=== PATIENT | male | born 1950 | race African-American/Black ===

== ENCOUNTER 2020-11-01 06:21 | Observation (INO) | payer MEDICARE, SELFPAY ==
[2020-11-01] VITALS (16 sets, daily range): BP systolic 97–141; BP diastolic 71–84; PULSE 68–187; RESP 18–20; TEMP 36.2–37.1; O2SAT 93–98; BMI 32.8
--- NOTE | 2020-11-01 | ECHO_ITS ---
Patient Info Name: Houston Read Age: 70 years : 1950 Gender: Male Ht: 71 in Wt: 240 lbs BSA: 2.37 m2 HR: 112 bpm BP: 111 / 75 mmHg Technical Quality: Good Exam Date: 11/01/2020 2:09 PM Exam Location: [facility] Patient Status: Outpatient Admit Date: 11/01/2020 Staff Ordering Physician: Birdie Chaparro MD Accounting Officer: Garret Henry RDCS, RT Attending Provider: Louise Campbell MD Referring Physician: Krysta ELDER; Exam Type: CA echo doppler color flow Study Info Indications I50.9 - Heart failure, unspecified Complete two-dimensional, color flow and Doppler transthoracic echocardiogram is performed. Strain analysis performed. Summary 1. Complete two-dimensional, color flow and Doppler transthoracic echocardiogram is performed. 2. Left ventricular chamber dimension is normal. 3. Left ventricular systolic function is normal, estimated at 55-60%. 4. Right ventricular chamber dimension is moderately enlarged. 5. Right ventricular systolic function is reduced. 6. There is no mitral valve regurgitation. 7. There is mild aortic valve sclerosis. 8. There is no aortic valve stenosis. 9. There is no tricuspid valve regurgitation. 10. The aortic root size at the sinus of Valsalva is borderline dilated. 4.2 cm. 11. The prox ascending aorta size is borderline dilated. Left Ventricle Left ventricular chamber dimension is normal. Left ventricular systolic function is normal, estimated at 55-60%. There is no increased left ventricular wall thickness. Right Ventricle Right ventricular chamber dimension is moderately enlarged. Right ventricular systolic function is reduced. Left Atria Left atrial chamber dimension is normal. Right Atria Right atrial chamber dimension is normal. Aortic Valve The aortic valve is trileaflet. There is mild aortic valve sclerosis. There is no aortic valve stenosis. There is no aortic valve regurgitation. Pulmonic Valve The pulmonic valve is normal. There is no pulmonic valve stenosis. There is no pulmonic regurgitation. Mitral Valve The mitral valve has normal leaflets. There is no mitral valve stenosis. There is no mitral valve regurgitation. Tricuspid Valve The tricuspid valve leaflets are normal. There is no significant tricuspid valve stenosis. There is no tricuspid valve regurgitation. Unable to assess pulmonary artery systolic pressure due to poor TR jet. Pericardium/Pleural The pericardium appears normal. There is no pericardial effusion. Inferior Vena Cava Dilated inferior vena cava with <50% collapse upon inspiration consistent with elevated right atrial pressure. Aorta The aortic root size at the sinus of Valsalva is borderline dilated. 4.2 cm. The prox ascending aorta size is borderline dilated. Left Ventricular Outflow Tract Name Value Normal LVOT 2D LVOT Diameter 2.5 cm LVOT Doppler LVOT Peak Gradient 2 mmHg LVOT Mean Gradient 2 mmHg LVOT VTI 12 cm LVOT VTI/AV VTI Ratio 0.9
--- NOTE | ~2020-11-01 | CT_ITS ---
EXAMINATION: CTA chest PE protocol DATE: 11/02/2020 10:39 INDICATION: Atrial fibrillation. Dilated right ventricle on echocardiography TECHNIQUE: Computed tomography angiography (CTA) of the chest was performed with 100 mL Omnipaque-350 intravenous contrast timed to evaluate the pulmonary arteries. Coronal maximum intensity projection 3D-reconstructions were created by the technologist. Automated exposure control and iterative reconst ruction technique were employed. Exam dose: 828.87 mGy-cm total exam DLP. COMPARISON: 10/29/2020 portable AP chest FINDINGS: There is diagnostic contrast enhancement of the pulmonary arteries. There are extensive bilateral pulmonary emboli including bilateral main pulmonary emboli, saddle embo li and emboli extending into all lobes. No thoracic aortic aneurysm or dissection. Normal heart size. No pericardial or pleural effusion. No hilar or mediastinal mass lesion or lymphadenopathy. No pulmonary consolidation. There are mild groundglass infiltrates primarily at the lower lobes. Degenerative changes of the cervical and thoracic spine; no suspicious osteolytic or osteoblastic les ions are identified. IMPRESSION: Severe bilateral pulmonary embolism Dr. Guadarrama telephoned the report of extensive bilateral pulmonary embolism to ICU nurse Mary on 11/02 at 1051 hours. Reviewed, dictated and finalized at [facility]. Reviewed, dictated and finalized at location [facility]. IMPRESSION: Severe bilateral pulmonary embolism Dr. Guadarrama telephoned the report of extensive bilateral pulmonary embolism to ICU nurse Mary on 11/02/2020 at 1051 hours.
--- NOTE | ~2020-11-01 | XR_ITS ---
EXAMINATION: XR chest 1V portable 11/01/2020 07:44 INDICATION: Atrial fibrillation PROCEDURE: AP portable chest COMPARISON: 06/10/2018 FINDINGS: The lungs are clear. The cardiomediastinal silhouette is within normal limits. There are no pleural effusions. There is no pneumothorax suspected. IMPRESSION: 1: NO ACUTE CARDIOPULMONARY DISEASE. Reviewed, dictated and finalized at location [facility].
--- NOTE | 2020-11-01 06:33 | ECG_ITS ---
Measurements Intervals [place] Rate: 188 P: VA: 0 QRS: 58 QRSD: 121 T: -55 QT: 204 QTc: 361 Interpretive Statements ATRIAL FIBRILLATION WITH RAPID VENTRICULAR RESPONSE VENTRICULAR PREMATURE COMPLEX AND FREQUENT VENTRICULAR COUPLETS INTRAVENTRICULAR CONDUCTION DELAY ST-T WAVE ABNORMALITY IN INF/LAT LEADS- CONSIDER ISCHEMIA OR RATE RELATED ABNORMAL ECG Electronically Signed On 11-01-2020 6:57:34 CDT by Clint Hopkins D.O.
[2020-11-01] MEDS: dilTIAZem HCl INJ 25 MG/5 ML VIAL 20 MG IV PUSH (06:35)
--- NOTE | 2020-11-01 06:38 | ECG_ITS ---
Measurements Intervals [place] Rate: 101 P: 56 NV: 161 QRS: 54 QRSD: 113 T: 0 QT: 337 QTc: 437 Interpretive Statements SINUS TACHYCARDIA INTRAVENTRICULAR CONDUCTION DELAY BORDERLINE ST-T WAVE ABNORMALITY- ANT/INF LEADS BASELINE ARTIFACT- I, II, III, AVR, AVL, AVF BORDERLINE ECG Electronically Signed On 11-01-2020 6:58:46 CDT by Clint Hopkins D.O.
--- NOTE | 2020-11-01 06:39 | ED.GENADULT ---
HPI - General Adult General Chief complaint: Abdominal Pain <Cecilio Escalera MD - Last Filed: 11/01/20 07:04> Stated complaint: food poisoning? <Cecilio Escalera MD - Last Filed: 11/01/20 07:04> Time Seen by Provider: 11/01/20 06:37 <Cecilio Escalera MD - Last Filed: 11/01/20 07:04> History of Present Illness HPI narrative: Patient is a 70-year-old gentleman who presents to the emergency department with chief complaint of not feeling well patient reports that he has a strange sensation in his stomach denies fever denies vomiting reports has had some nausea. The patient denies diarrhea patient reports his past medical history significant for diabetes <Cecilio Escalera MD - Last Filed: 11/01/20 07:04> Related Data Allergies/adverse reactions: Allergies Allergy/AdvReac Type Severity Reaction Status Date / Time No Known Allergies Allergy Mild Verified 11/01/20 06:45 <Cecilio Escalera MD - Last Filed: 11/01/20 07:04> Review of Systems Review of Systems: Narrative: A 10 system review of systems was completed on the patient and is negative except for what is stated in the HPI. Nursing and ancillary documentation was reviewed. <Cecilio Escalera MD - Last Filed: 11/01/20 07:04> [facility] Past Medical History Medical History: Medical History (Updated 11/01/20 @ 08:22 by Birdie Chaparro MD) Diabetes mellitus Erectile dysfunction HLD (hyperlipidemia) Hypertension Normal colonoscopy (~2009) Renal failure <Cecilio Escalera MD - Last Filed: 11/01/20 07:04> Surgical History Surgical History: Surgical History Hx of appendectomy <Cecilio Escalera MD - Last Filed: 11/01/20 07:04> Family History Family History: Family History Unknown Heart disease <Cecilio Escalera MD - Last Filed: 11/01/20 07:04> Social History Social History: Social History Smoking status: Never smoker Second hand tobacco smoke exposure: No Alcohol intake: never Gender identity (if verbalized by the patient): Male <Cecilio Escalera MD - Last Filed: 11/01/20 07:04> Exam Narrative: Exam Narrative: GENERAL: Well-appearing, well-nourished, and in no acute distress. HEAD: Normocephalic, atraumatic. EYES: PERRLA and EOMI. ENT: Nares clear, no rhinorrhea or epistaxis. Mucous membranes moist. NECK: Supple. CHEST: Clear to auscultation. No respiratory distress. HEART: Regular rate and rhythm. No murmur heard. Normal peripheral pulses. ABDOMEN: Soft, nontender, nondistended, normal active bowel sounds. EXTREMITIES: Normal range of motion. No edema. SKIN: Warm, dry, no rash. NEURO: No focal deficits. Alert and oriented x3. PSYCH: Normal mood and affect. <Cecilio Escalera MD - Last Filed: 11/01/20 07:04> Course Course Emergency Course: The patient's heart rate after receiving Cardizem bolus and Cardizem drip converted back to sinus rhythm. <Cecilio Escalera MD - Last Filed: 11/01/20 07:04> Vital Signs Vital signs: Vital Signs Temperature 37.1 C 11/01/20 06:24 Pulse Rate 187 H 11/01/20 06:24 Respiratory Rate 18 11/01/20 06:24 Blood Pressure 122/71 11/01/20 06:24 Pulse Oximetry 98 11/01/20 06:24 Temperature 37.1 C 11/01/20 06:24 Pulse Rate 112 H 11/01/20 07:28 Respiratory Rate 18 11/01/20 07:28 Blood Pressure 111/75 11/01/20 07:28 Pulse Oximetry 94 11/01/20 07:28 <Cecilio Escalera MD - Last Filed: 11/01/20 07:04> Vital Signs Temperature 37.1 C 11/01/20 06:24 Pulse Rate 187 H 11/01/20 06:24 Respiratory Rate 18 11/01/20 06:24 Blood Pressure 122/71 11/01/20 06:24 Pulse Oximetry 98 11/01/20 06:24 Temperature 37.1 C 11/01/20 06
[2020-11-01 06:43] LABS: Glucose Point of Care 454 (65-105)
[2020-11-01 06:46] LABS: Basophils Percent Auto 0.2 % (0.2-1.2); Eosinophils Percent Auto 0.1 % (0-4.4); Hematocrit 43.9 % (42.0-52.0); Hemoglobin 14.9 g/dL (14.0-18.0); Immature Granulocyte Absolute 0.02 K/mm3 (0.00-0.031); Immature Granulocyte Percent A 0.2 % (0-0.5); Lymphocytes Absolute Auto 2.99 K/mm3 (0.9-3.2); Lymphocytes Percent Auto 34.9 % (18.3-44.2); Mean Corpuscular HGB Conc 33.9 g/dl (32-36); Mean Corpuscular Hemoglobin 29.4 pg (26-34); Mean Corpuscular Volume 86.6 fl (80-100); Mean Platelet Volume 10.6 fl (7.4-10.4); Monocytes Absolute Auto 0.7 K/mm3 (0.1-0.6); Monocytes Percent Auto 8.5 % (2.6-8.5); Neutrophils Absolute Auto 4.8 K/mm3 (1.3-6.7); Neutrophils Percent Auto 56.1 % (45.5-73.1); Platelet Count Result 177 k/mm3 (150-375); Red Blood Count 5.07 M/mm3 (4.6-6.20); Red Cell Distribution Width 13.1 % (11.5-14.5); White Blood Count 8.6 K/mm3 (4.5-10.0)
[2020-11-01] MEDS: ASPIRIN 81 MG CHEWABLE TABLET 324 MG PO (06:50)
[2020-11-01] MEDS: SODIUM CHLORIDE 0.9% IV 1,000 ML 999 ML IV CONT (06:50)
[2020-11-01] MEDS: ONDANSETRON INJ 4 MG/2 ML VIAL IV PUSH (06:51)
[2020-11-01 06:56] LABS: Lipase 129 U/L (23-300); Partial Thromboplastin Time 27.6 SECONDS (22.3-36.8); Prothrombin Time 13.6 Seconds (11.1-14.7)
[2020-11-01 06:58] LABS: Alveolar/Arterial O2 Gradient 43.4 mmHg; Base Excess ABG -4.6 mEq/l (+/-2.0); Fractional Inspired Oxygen 21 %; HCO3 ABG 18.6 mEq/l (22.0-26.0); Oxygen Content ABG 18.9 %vol (16.0-22.0); Oxygen Saturation ABG 94.6 % (95.0-100.0); Oxyhemoglobin 92.2 % THb (90.0-100.0); PCO2 ABG 29.9 mmHg (35.0-45.0); PO2 ABG 70.5 mmHg (80.0-100.0); PO2 FiO2 Ratio Arterial Blood 3.36 %; Total Hemoglobin 14.6 g/dL (12.0-18.0); pH ABG 7.412 (7.350-7.450)
[2020-11-01 06:59] LABS: Device ROOM AIR; Modified Allen's Test Pass; Site Drawn RIGHT RADIAL
[2020-11-01 07:07] LABS: NT Pro B Type Natriuretic Pept 1040 PG/ML (5-100)
[2020-11-01 07:12] LABS: Troponin I 0.126 ng/mL (0.000-0.034)
[2020-11-01 07:37] LABS: Add Urine Microscopic? YES; Appearance Urine Clear (Clear); Bacteria Urine Trace /hpf; Bilirubin Urine Negative (Negative); Blood Urine Negative (Negative); Color Urine Yellow (Yellow); Glucose Urine UA 3+ mg/dL (Negative); Ketones Urine Trace mg/dL (Negative); Leukocyte Esterase Ur Negative LEU/UL (Negative); Mucus Urine Rare /lpf; Nitrate Urine Negative (Negative); Protein Urine 2+ mg/dL (Negative); RBC Urine 0-2 /hpf (0-2); Specific Grav Ur 1.017 (1.001-1.035); Squamous Epithelial Cell Urine Rare /hpf (Few); Urobilinogen Urine Negative mg/dL (<2.0); WBC Urine 0-3 /hpf
[2020-11-01 08:02] LABS: Alanine Aminotransferase 43 U/L (4-50); Albumin Level 4.5 g/dL (3.5-5.1); Alkaline Phosphatase 77 U/L (38-126); Anion Gap 15 mmol/L (8-16); Aspartate Amino Transferase 51 U/L (17-59); Bilirubin,Total 1.1 mg/dL (0.2-1.3); Blood Urea Nitrogen 17 mg/dL (9-20); Calcium 10.3 mg/dL (8.4-10.2); Carbon Dioxide 23 mmol/L (22-30); Chloride 100 mmol/L (98-107); Estimated CRCL calculation 46 ml/min; Estimated Glomerular Filt Rate 49; Glucose 476 mg/dL (75-110); Potassium 4.6 mmol/L (3.4-5.0); Sodium 138 mmol/L (137-145)
[2020-11-01 08:09] LABS: Lactic Acid Reflex 1.8 mmol/L (0.7-2.1)
[2020-11-01 08:11] LABS: Beta-Hydroxybutyrate/Acetoacetate 0.85 mmol/L (0.02-0.27)
[2020-11-01] MEDS: INSULIN HUMAN REGULAR (*BKC) 100 UNITS/ML IV PUSH (08:21)
[2020-11-01 09:29] LABS: Glucose Point of Care 311 (65-105)
--- NOTE | 2020-11-01 09:40 | PC.NURSE ---
This patient, Houston Read, was admitted to IMU Room 201-01. Patient/family oriented to hospital policies and general routines including ID bracelet, bed and alarms, visiting hours, pain management, procedures, bathroom and other care routines, personal items, smoking policy, room service/diet, and visiting hours. Information on how to activate the Rapid Response Team has been discussed. Patient/Family are encouraged to report perceived risks to care and to ask questions if they do not understand what they are told or what they should do.
--- NOTE | 2020-11-01 09:59 | PM.CNCAR ---
Assessment and Plan Assessment and plan (1) Atrial fibrillation with rapid ventricular response: Code(s): I48.91 - Unspecified atrial fibrillation Status: Acute Assessment and Plan: Initially in AFIB with RVR. Now in NSR. This is the first episode pt ever had. cont cardizem monitor electrolytes and kideney function cont ASA for now. In case of recurrent arrhythmia may benefit from anticoagulation. Will arrange for Event monitor on outpatient basis. (2) Type 2 diabetes mellitus: Code(s): E11.9 - Type 2 diabetes mellitus without complications Status: Acute Assessment and Plan: Management per PC (3) Elevated troponin: Code(s): R77.8 - Other specified abnormalities of plasma proteins Status: Acute Assessment and Plan: Mild troponin elevation with flat pattern probably due to supply/demand mismatch in setting of tachyarrhythmia and chronic renal dysfunction or NSTEMI Agree with ECHO to evaluate LV function He may benefit from further cardiac evaluation on outpatient basis. (4) Chronic kidney disease, stage 3: Code(s): N18.30 - Chronic kidney disease, stage 3 unspecified Status: Acute Assessment and Plan: Cr elevated (1.7) May benefit from nephrology eval on outpt basis. Thank your for consult. Marquis robles. History of Present Illness History of Present Illness Consult date/time: 11/01/20 Mr. Read is a pleasant 70 y/o AAM with PMH of DM who presented to [facility] [place] [facility] due to episodes of dizziness. Pt states that felt dizzy on/off for the last few days. Worst symptoms he had yesterday and at that time felt some abdominal discomfort as well. Pt had EKG in ER which showed AFIB with RVR. He received one dose of cardizem and converted back to NSR. Hi dizziness then resolved. Denies palpitation or syncopal episodes. Pt denies any cardiac history. No arrhythmias. No PR, PCI of CABG. Never had stress test of ECHO. While in ER he was found to have elevated glucose and was complaining for some [place] as well. Pt was seen and examined while on telemetry floor, chart was reviewed, d/w pt's nurse. He feels fine now and is eager to go home. Reason For Visit: Tachydysrhythmia, elevated troponin, MELANIE Review of Systems Review of Systems: All systems reviewed & are unremarkable except as noted in HPI and below Constitutional: Constitutional: Reports as per HPI Eyes: Eyes: Reports as per HPI ENT: Reports system reviewed and no additional complaints, except as documented and Reports as per HPI Cardiovascular: Cardiovascular: Reports as per HPI Respiratory: Respiratory: Reports as per HPI Gastrointestinal: Gastrointestinal: Reports as per HPI Genitourinary: Genitourinary: Reports as per HPI Musculoskeletal: Musculoskeletal: Reports as per HPI [facility] Past Medical History Medical History (Updated 11/01/20 @ 13:35 by Yari Sarmiento PA-C) Anemia Chronic kidney disease, stage 3 Baseline creatinine ranges between 1.2 and 1.30. Dyslipidemia Erectile dysfunction Hypertension Normal colonoscopy (~2009) Type 2 diabetes mellitus Hemoglobin A1c was 6.9% in May 2019. Surgical History Surgical History (Updated 11/01/20 @ 13:33 by Yari Sarmiento PA-C) History of appendectomy History of hand surgery Close reduction with percutaneous pinning of left 5th finger fracture. History of repair of right rotator cuff Family History Family History (Updated 11/01/20 @ 13:33 by Yari Sarmiento PA-C) Unknown Heart disease Sibling Congestive heart failure Social History Social History (Updated 11/01/20 @ 13:34 by Yari Sarmiento PA-C) Social History: Surrogate decision maker: Dakota Read, brother. Code status: Full code. Smoking status: Never smoker Second hand tobacco smoke exposure: No Additional smoking assessment comments: Patient smokes socially for 3 years remotely. Alcohol intake: never Substance use: never
[2020-11-01 11:15] LABS: Magnesium 1.6 mg/dL (1.6-2.3)
[2020-11-01 11:26] LABS: Troponin I 0.104 ng/mL (0.000-0.034)
[2020-11-01 13:16] LABS: Troponin I 0.094 ng/mL (0.000-0.034)
--- NOTE | 2020-11-01 13:30 | PM.IMHP ---
H&P: HPI History of Present Illness Date/Time: 11/01/20 13:00 Chief Complaint: Dizziness, shortness of breath, abdominal discomfort. Narrative: This is a 70-year-old male with type 2 diabetes mellitus, hypertension, hyperlipidemia, chronic kidney disease stage 3, and anemia who presented to the emergency department earlier today from home with complaints of dizziness, shortness of breath, and abdominal discomfort. Sometime last evening while watching television he began to feel a bit lightheaded with mild shortness of breath and generalized abdominal discomfort and bloating. He also felt as though his heart was racing so he lay down and took slow deep breaths with improvement. Each time he got up to go to the bathroom etcetera his heart with once again start to race with dizziness and shortness of breath. On arrival to the emergency department he was in atrial fibrillation with rapid ventricular response and he converted to a sinus rhythm/sinus tachycardia after receiving 1 dose of Cardizem IV push. He has never had similar symptoms in the past. No known history of cardiac or thyroid disease. He denies sleep apnea and concerns for such. He does not drink alcohol and very rarely will drink a soda here and there. Weight has remained stable. He has not had exertional chest pain or shortness of breath. No pleuritic pain. He also denies nausea, vomiting, and sweats. At the time my evaluation he feels great and is ready to go home. Review of Systems Review of Systems: Narrative: Twelve systems were reviewed with pertinent positives and negatives as per HPI. His glucose today after dinner was over 500 which the patient tells me has never occurred. He states compliance with his oral hypoglycemics and to his knowledge his diabetes has been well controlled for quite some time. No blurry vision, polydipsia, or polyuria. Appetite has been as per usual and without vomiting or diarrhea. Except as documented, all other systems were reviewed and are negative. [facility] Past Medical History Medical History Anemia Chronic kidney disease, stage 3 Baseline creatinine ranges between 1.2 and 1.30. Dyslipidemia Erectile dysfunction Hypertension Normal colonoscopy (~2009) Type 2 diabetes mellitus Hemoglobin A1c was 6.9% in May 2019. Surgical History Surgical History (Updated 11/01/20 @ 13:33 by Yari Sarmiento PA-C) History of appendectomy History of hand surgery Close reduction with percutaneous pinning of left 5th finger fracture. History of repair of right rotator cuff Family History Family History (Updated 11/01/20 @ 13:33 by Yari Sarmiento PA-C) Unknown Heart disease Sibling Congestive heart failure Social History Social History (Updated 11/01/20 @ 22:30 by Yari Sarmiento PA-C) Social History: Surrogate decision maker: Dakota Read, brother. Code status: Full code. Smoking status: Never smoker Second hand tobacco smoke exposure: No Additional smoking assessment comments: Patient smoked socially for 3 years remotely. Alcohol intake: never Substance use: never Additional living arrangements comments: Lives alone in [place]. He has grown children. Additional occupation/education comments: He drives a school bus. Gender identity (if verbalized by the patient): Male Spiritual care concerns: No Meds Home Medications and Allergies Home Medications Medication Instructions Recorded Confirmed Type glimepiride 4 mg tablet 4 mg PO QAM #90 tablet 03/31/20 11/01/20 Rx lisinopril 20 mg tablet 20 mg PO DAILY #90 tablet 03/31/20 11/01/20 Rx lovastatin 20 mg tablet 20 mg PO DAILY #90 tablet 03/31/20 11/01/20 Rx metformin 500 mg tablet 1,000 mg PO BID #360 tablet 06/22/20 11/01/20 Rx cyclobenzaprine 10 mg PO HS 11/01/20 11/01/20 History Allergies Allergy/AdvReac Type Severity Reaction Status Date / Time No Known Allergies Al
[2020-11-01 14:23] LABS: Hemoglobin A1C 10.1 % (<5.7)
[2020-11-01] MEDS: SODIUM CHLORIDE 0.9% IV 1,000 ML 100 ML IV CONT (14:54)
[2020-11-01] MEDS: ENOXAPARIN 120 MG/0.8 ML SYRINGE 105 MG SUB-Q (14:55)
[2020-11-01 17:12] LABS: Glucose Point of Care > 500 (65-105)
[2020-11-01] MEDS: INSULIN ASPART (*BKC) 100 UNITS/ML SUB-Q (18:04)
[2020-11-01] MEDS: INSULIN ASPART (*BKC) 100 UNITS/ML 6 UNITS SUB-Q (18:40)
[2020-11-01 20:06] LABS: Glucose Point of Care 379 (65-105)
[2020-11-01 20:41] LABS: Anion Gap 7 mmol/L (8-16); Blood Urea Nitrogen 22 mg/dL (9-20); Calcium 9.4 mg/dL (8.4-10.2); Carbon Dioxide 25 mmol/L (22-30); Chloride 102 mmol/L (98-107); Estimated CRCL calculation 52 ml/min; Estimated Glomerular Filt Rate 56; Glucose 328 mg/dL (75-110); Potassium 3.8 mmol/L (3.4-5.0); Sodium 134 mmol/L (137-145)
[2020-11-01] MEDS: MAGNESIUM OXIDE 400 MG TABLET 800 MG PO (21:02)
[2020-11-02 02:00] VITALS: PULSE 102
[2020-11-02] MEDS: ENOXAPARIN 120 MG/0.8 ML SYRINGE 105 MG SUB-Q (03:00)
[2020-11-02 04:00] VITALS: BP 118/66; PULSE 110; PULSE 111; RESP 18; RESP 20; TEMP 36.6; O2SAT 96
[2020-11-02 05:17] LABS: Hematocrit 36.4 % (42.0-52.0); Hemoglobin 12.5 g/dL (14.0-18.0); Immature Platelet Fraction Pct 7.3 % (0.9-11.2); Mean Corpuscular HGB Conc 34.3 g/dl (32-36); Mean Corpuscular Volume 87.5 fl (80-100); Mean Platelet Volume 10.8 fl (7.4-10.4); Platelet Count Result 147 k/mm3 (150-375); Red Blood Count 4.16 M/mm3 (4.6-6.20); Red Cell Distribution Width 13.3 % (11.5-14.5); White Blood Count 5.7 K/mm3 (4.5-10.0)
[2020-11-02 05:38] LABS: Anion Gap 4 mmol/L (8-16); Blood Urea Nitrogen 20 mg/dL (9-20); Calcium 8.6 mg/dL (8.4-10.2); Carbon Dioxide 27 mmol/L (22-30); Chloride 103 mmol/L (98-107); Estimated CRCL calculation 56 ml/min; Estimated Glomerular Filt Rate > 60; Glucose 350 mg/dL (75-110); Magnesium 1.6 mg/dL (1.6-2.3); Potassium 4.6 mmol/L (3.4-5.0); Sodium 134 mmol/L (137-145)
[2020-11-02 06:00] VITALS: PULSE 111
[2020-11-02 08:00] VITALS: BP 137/85; PULSE 102; PULSE 103; RESP 18; TEMP 35.5; O2SAT 99
[2020-11-02] MEDS: MAGNESIUM OXIDE 400 MG TABLET 800 MG PO (08:12)
[2020-11-02] MEDS: LOVASTATIN 20 MG TABLET PO (08:13)
[2020-11-02] MEDS: ASPIRIN 325 MG ENTERIC TABLET PO (08:13)
[2020-11-02] MEDS: GLIMEPIRIDE 2 MG TABLET 4 MG PO (08:13)
[2020-11-02] MEDS: INSULIN ASPART (*BKC) 100 UNITS/ML SUB-Q ×2 (08:15→12:15)
--- NOTE | 2020-11-02 08:26 | PM.PNCARD ---
Progress Note: A&P Assessment and Plan (1) Atrial fibrillation with rapid ventricular response: Code(s): I48.91 - Unspecified atrial fibrillation Status: Acute Assessment and Plan: Initially in AFIB with RVR, Now in sinus tachycardia 2D echo showed dilated RV and RV dysfunction. With new onset A fib, mild trop elevation and finding on 2D echo there is high suspecion for PE Will proceed with stat CT scan PE protocol. His Cr is 1.4, will order IV fluids in anticipation to contrast He is on therapeutic dose of Lovenox. Will continue for now. He is hemodynamically stable except for mild sinus tachycardia (2) Elevated troponin: Code(s): R77.8 - Other specified abnormalities of plasma proteins Status: Acute Assessment and Plan: With dilated RV on echo. Will rule out PE. (3) Chronic kidney disease, stage 3: Code(s): N18.30 - Chronic kidney disease, stage 3 unspecified Status: Acute Assessment and Plan: Cr elevated (1.7), now down to 1.4. Need stat CT scan with contrast to rule out PE. Rodney tart IV fluids . (4) Type 2 diabetes mellitus: Code(s): E11.9 - Type 2 diabetes mellitus without complications Status: Acute Assessment and Plan: Management per PC Subjective Date/time seen: 11/02/20 08:26 He feels better and would like to go home. He remains in sinus rhythm since converted in ER. In Sinus tachycardia now ~ 100 Review of Systems Review of Systems: All systems reviewed & are unremarkable except as noted in HPI and below Constitutional: Constitutional: Reports as per HPI Eyes: Eyes: Reports as per HPI ENT: Reports system reviewed and no additional complaints, except as documented and Reports as per HPI Cardiovascular: Cardiovascular: Reports as per HPI Respiratory: Respiratory: Reports as per HPI Gastrointestinal: Gastrointestinal: Reports as per HPI Genitourinary: Genitourinary: Reports as per HPI Musculoskeletal: Musculoskeletal: Reports as per HPI Exam Const: General: alert and awake; No acute distress HENMT: Head: normal to inspection and atraumatic Ears: hearing grossly normal bilaterally Face and sinus: normal facial exam Eyes: General: appearance normal, both eyes and all related structures Pupils: Equal, round and reactive pupils present EOM: EOMs intact bilaterally Neck: Neck: normal visual inspection and no JVD Chest: Chest palpation & inspection: normal inspection of the chest Resp: Effort & Inspection: normal respiratory effort and no respiratory distress Auscultation: clear to auscultation bilaterally Cardio: Jugular venous distension: no JVD Rate: regular rate Heart sounds: S1 normal heart sound present, S2 normal heart sound present and no murmurs GI: Inspection: normal to inspection Auscultation: normal bowel sounds Skin: General skin exam: normal color Neuro: Cranial nerves: Yes Equal, round and reactive pupils present Extrem: General: normal to inspection and no clubbing, cyanosis or edema Objective Data Vital Signs Vital Signs: Vital Signs - 24 hr 11/01/20 09:46 11/01/20 09:50 11/01/20 10:00 Temperature 36.2 C L Pulse Rate 107 H 107 H 103 H Respiratory Rate 18 18 Blood Pressure 124/72 97/76 L Pulse Oximetry 96 97 11/01/20 12:00 11/01/20 14:00 11/01/20 16:00 Temperature 36.3 C L 36.4 C Pulse Rate 114 H 117 H 119 H Respiratory Rate 18 18 Blood Pressure 123/72 123/80 Pulse Oximetry 98 96 11/01/20 18:00 11/01/20 19:46 11/01/20 20:00 Temperature 36.6 C Pulse Rate 112 H 113 H 115 H Respiratory Rate 18 18 Blood Pressure 114/71 Pulse Oximetry 93 93 11/01/20 22:00 11/01/20 23:17 11/01/20 23:59 Temperature 36.6 C Pulse Rate 112 H 115 H 108 H Respiratory Rate 20 20 Blood Pressure 130/75 Pulse Oximetry 96 96 11/02/20 02:00 11/02/20 04:00 11/02/20 06:00 Temperature 36.6 C Pulse Rate 102 H 111 H 111 H Respiratory Rate 18 Blood Pressu
[2020-11-02 08:51] LABS: Glucose Point of Care 320 (65-105)
[2020-11-02 10:00] VITALS: PULSE 114
[2020-11-02] MEDS: SODIUM CHLORIDE 0.9% IV 1,000 ML 100 ML IV CONT (10:19)
[2020-11-02 12:00] VITALS: BP 143/93; PULSE 114; PULSE 135; RESP 18; TEMP 35.8; O2SAT 98
[2020-11-02 12:23] LABS: Glucose Point of Care 383 (65-105)
--- NOTE | 2020-11-02 17:50 | PM.TDS ---
Transfer Discharge Sum: Prov Provider Date of admission: 11/01/20 08:15 Primary care physician: Reena Sims MD Admitting clinician: Louise Campbell MD Consults: 11/01/20 08:17 Consult to Physician Routine Comment: Consulting Provider: Connor Olson Reason for consultation: elevated troponin Has provider been notified: Yes DS: Admitting Diagnosis Admitting Diagnosis Admitting Diagnosis: Chief Complaint: Dizziness, shortness of breath, abdominal discomfort. DS: Discharge Diagnosis Discharge Diagnosis (1) Atrial fibrillation with rapid ventricular response: Code(s): I48.91 - Unspecified atrial fibrillation Status: Acute Assessment and Plan: Patient presented to the hospital in AFib/RVR with a rate of 187. Converted to sinus rhythm with diltiazem. This is a new diagnosis for the patient he has had symptoms for about 24 hours. Chads Vasc 2 score is 3; will start therapeutic Lovenox for now, pending cardiology consult. Echocardiogram and TSH pending. Consider apnea link. (2) Elevated troponin: Code(s): R77.8 - Other specified abnormalities of plasma proteins Status: Acute Assessment and Plan: Likely related to AFib/RVR; he is not have any chest pain whatsoever. Trend troponins to peak. Echocardiogram in a.m. Cardiology input appreciated. (3) Hypertension: Code(s): I10 - Essential (primary) hypertension Status: Acute Assessment and Plan: Blood pressures were reviewed and they are well controlled aside from 1 soft reading after receiving bolus of diltiazem. Patient reports normal oral intake. Lisinopril on hold given worsening renal function. Continue to monitor blood pressures daily. (4) Dyslipidemia: Code(s): E78.5 - Hyperlipidemia, unspecified Status: Acute Assessment and Plan: Continue statin; LFTs within normal limits. (5) Chronic kidney disease, stage 3: Code(s): N18.30 - Chronic kidney disease, stage 3 unspecified Status: Acute Assessment and Plan: Baseline creatinine appears to be between 1.2 and 1.30, today a bit elevated at 1.70. Lisinopril and metformin on hold. Judicious IV fluid rehydration overnight. Repeat renal function in a.m. (6) Type 2 diabetes mellitus: Code(s): E11.9 - Type 2 diabetes mellitus without complications Status: Acute Assessment and Plan: Hemoglobin A1c was 6.9% in May 2019. Random glucose this morning was 476! Metformin on hold given increasing creatinine from baseline. Continue glipizide. Initiate sliding scale insulin, Accu-Cheks, and hypoglycemic protocol. Check hemoglobin A1c. Transfer Discharge Sum: Med Medications Active and Home Medications: Home Medications glimepiride 4 mg tablet 4 mg PO QAM #90 tablet 03/31/20 [Rx Confirmed 11/01/20] lisinopril 20 mg tablet 20 mg PO DAILY #90 tablet 03/31/20 [Rx Confirmed 11/01/20] lovastatin 20 mg tablet 20 mg PO DAILY #90 tablet 03/31/20 [Rx Confirmed 11/01/20] metformin 500 mg tablet 1,000 mg PO BID #360 tablet 06/22/20 [Rx Confirmed 11/01/20] cyclobenzaprine 10 mg PO HS 11/01/20 [History Confirmed 11/01/20] Transfer Discharge Sum: Hosp Hospital Course Hospital course: [place] Read is a 70 year old male Chief Complaint: Dizziness, shortness of breath, abdominal discomfort. Narrative: This is a 70-year-old male with type 2 diabetes mellitus, hypertension, hyperlipidemia, chronic kidney disease stage 3, and anemia who presented to the emergency department earlier today from home with complaints of dizziness, shortness of breath, and abdominal discomfort. Sometime last evening while watching television he began to feel a bit lightheaded with mild shortness of breath and generalized abdominal discomfort and bloating. He also felt as though his heart was racing so he lay down and took slow deep breaths with improvement. Each time he got up to go to the bathroom et
== END 2020-11-02 14:30 | disposition short-term general hospital (02) ==
LOC: ANHED 08:22 → ANHIMU 08:34
PROVIDERS: Internal Medicine Cardiovascular Disease; Physician Assistant; Admitting Provider Family Medicine; Emergency Provider Emergency Medicine; PCP Family Medicine; Visit Provider Family Medicine
DX: I48.91 Unspecified atrial fibrillation (principal); I26.99 Other pulmonary embolism without acute cor pulmonale; R77.8 Other specified abnormalities of plasma proteins; I12.9 Hypertensive chronic kidney disease with stage 1 through stage 4 chronic kidney disease, or unspecified chronic kidney disease; N18.30 Chronic kidney disease, stage 3 unspecified; E11.22 Type 2 diabetes mellitus with diabetic chronic kidney disease; E78.5 Hyperlipidemia, unspecified; R10.9 Unspecified abdominal pain; R06.02 Shortness of breath; Z79.84 Long term (current) use of oral hypoglycemic drugs
CPT/HCPCS: 36415; 36600; 71045; 71275; 80048; 80053; 81001; 82010; 82805; 82948; 83036; 83605; 83690; 83735; 83880; 84443; 84484; 85025; 85027; 85055; 85610; 85730; 93005; 93306; 96361; 96372; 96374; 96375; 99285; A9270; G0378; J1650; J1815; J2405; J7030; Q9967

== ENCOUNTER 2023-11-18 10:10 | Outpatient (CLI) | payer MEDICARE, SELFPAY ==
--- NOTE | ~2023-11-18 | US_ITS ---
EXAMINATION: US soft tissue UE RT DATE: 11/18/2023 10:27 INDICATION: Localized swelling, mass and lump, right upper limb. TECHNIQUE: Multiple grayscale and Doppler ultrasound images of the right upper limb were obtained. COMPARISON: None FINDINGS: Superior to right acromioclavicular joint, there is a 4.1 x 2.0 x 5.2 cm predominantly cyst ic mass with peripheral hypoechoic component without internal vascular flow. IMPRESSION: 1. 5.2 cm cystic mass superior to the right acromioclavicular joint, which may be a synovial cyst. Ne oplasm is not excluded. Consider right shoulder MRI without and with contrast. Reviewed, dictated and finalized at location A. IMPRESSION: 1. 5.2 cm cystic mass superior to the right acromioclavicular joint, which may be a synovial cyst. Neoplasm is not excluded. Consider right shoulder MRI witho ut and with contrast.
== END 2023-11-18 10:11 ==
LOC: MICIMG 10:11
PROVIDERS: PCP Surgery; Visit Provider Surgery
DX: R22.31 Localized swelling, mass and lump, right upper limb (principal)
CPT/HCPCS: 76882

== ENCOUNTER 2023-11-29 09:25 | Outpatient (CLI) | payer MEDICARE, SELFPAY ==
--- NOTE | 2023-11-29 09:41 | ECG_ITS ---
SEE SCANNED COPY FOR CONFIRMED REPORT MTDD
[2023-11-29 10:14] LABS: Partial Thromboplastin Time 27.1 Seconds (22.3-36.8); Prothrombin Time 13.3 Seconds (11.1-14.7)
[2023-11-29 10:24] LABS: Anion Gap 8 mmol/L (4-12); Blood Urea Nitrogen 21 mg/dL (9-20); Calcium 10.1 mg/dL (8.4-10.2); Carbon Dioxide 25 mmol/L (22-30); Chloride 107 mmol/L (98-107); Estimated Glomerular Filt Rate 56; Glucose 309 mg/dL (65-110); Potassium 4.9 mmol/L (3.4-5.0); Sodium 140 mmol/L (137-145)
== END 2023-11-29 09:26 | disposition home or self-care (01) ==
LOC: ANHSURGERY 09:29
PROVIDERS: Anesthesiology; PCP Family Medicine; Visit Provider Surgery
DX: Z01.818 Encounter for other preprocedural examination (principal); E11.9 Type 2 diabetes mellitus without complications; I12.9 Hypertensive chronic kidney disease with stage 1 through stage 4 chronic kidney disease, or unspecified chronic kidney disease; N18.30 Chronic kidney disease, stage 3 unspecified
CPT/HCPCS: 36415; 80048; 85610; 85730; 93005

== ENCOUNTER 2023-12-02 00:46 | Day surgery (SDC) | payer MEDICARE, SELFPAY ==
[2023-11-28 11:15] VITALS: BMI 30.7
--- NOTE | 2023-11-28 11:46 | PC.NURSE ---
Report to the Outpatient Waiting Room, entrance under the green pavilion located off [facility], at time __10:00AM on date ___12/02/23____. Planned Procedure Time: __12:00PM . Time changes happen often and if your time is changed the preop area will call you the afternoon before. - You and your visitor will be asked to self-screen and do not enter if you have any COVID symptoms. - A mask is optional within the hospital at this time. Patients may have clear liquids (water, carbonated beverages, clear teas, apple juice) until 3 hours prior to surgery with a maximum of 20 ounces. - No food from midnight until time of surgery. Take the following medications with a SIP of water the morning of surgery: METOPROLOL DO NOT STOP ANY OF YOUR OTHER PRESCRIPTION MEDICATIONS PRIOR TO SURGERY ?EXCEPT THE FOLLOWING Medications to discontinue per physician ___NONE Date to take last dose Please no make-up, nail slovenian, hairspray, perfume, deodorant, or body powder the day of surgery. No jewelry (including any body piercings) or valuables the day of surgery, leave them at home. Please take a shower or bath the night before, or the morning of, surgery with an antibacterial soap. Wear comfortable, loose fitting clothing. - Jewelry must be removed prior to entering the operating room. Rings and piercings that are not removed may be cut off. - The hospital will not accept responsibility for valuables. - Please leave all valuables, including medications, at home the day of surgery. If you are going home after surgery, a licensed coach tour driver must drive you home. - NO public transportation without another adult if you receive anesthesia. - We recommend that an adult stay with you for 24 hours following discharge. - We also recommend that you do not drive, make important decision, drink alcoholic beverages, or take any drugs that were not prescribed by your health care provider for at least 24 hours after your discharge time. Follow any additional instructions given to you from your surgeon. If you or anyone in your household have experienced Covid symptoms in the past week, please notify your surgeon or the nurse liaison at the phone number below for possible testing. Telephone instructions given to ___PATIENT and asked if any additional questions and then verbalized understanding. Patient advised to call surgeon office or pre surgery nurse liaison [phone] if any additional questions.
[2023-12-02 09:33] VITALS: BP 123/69; PULSE 87; RESP 18; TEMP 36.3; O2SAT 100
[2023-12-02 10:05] LABS: Glucose Point of Care 114 mg/dl (65-105)
--- NOTE | 2023-12-02 11:40 | WPDANESEPPF ---
Anes - Initial Pre Proc Eval Procedure: Operation Date: 12/02/23 12:00 Proposed Procedures p Excisional Biopsy Right Shoulder Mass - Caroline Lomeli MD Date/Time: 12/02/23 11:40 Surgeon: Caroline Lomeli MD Pre Op Diagnosis: right shoulder mass Patient Data Age: 73 Gender: M Height: 1.8 m Weight: 106.9 kg Last Vital Signs Temp 97.4 F L 12/02/23 09:33 Pulse 87 12/02/23 09:33 Resp 18 12/02/23 09:33 BP 123/69 12/02/23 09:33 Pulse Ox 100 12/02/23 09:33 O2 Del Method Room Air 12/02/23 09:33 Allergies Allergy/AdvReac Type Severity Reaction Status Date / Time No Known Allergies Allergy Mild Verified 11/28/23 11:11 Home Medications Medication Instructions Recorded Confirmed Type simvastatin 20 mg tablet 20 mg PO DAILY #30 tabs 02/27/21 12/02/23 Rx sildenafil 100 mg tablet (Viagra) 100 mg PO DAILY PRN sexual 09/30/22 12/02/23 Rx activity #10 tabs metformin 500 mg tablet 1,000 mg PO BID #360 tabs 05/02/23 12/02/23 Rx glimepiride 4 mg tablet 4 mg PO BID #180 tabs 06/06/23 12/02/23 Rx aspirin 81 mg tablet,delayed 81 mg PO DAILY 11/28/23 12/02/23 History release cyclobenzaprine 10 mg tablet 10 mg PO HS PRN Muscle Spasm 11/28/23 12/02/23 History lisinopril 20 mg tablet 20 mg PO QAM 11/28/23 12/02/23 History metoprolol succinate 25 mg 25 mg PO QAM 11/28/23 12/02/23 History tablet,extended release 24 hr Laboratory Tests 12/02/23 10:02 POC Capillary Glucose 114 H mg/dl (65-105) Patient hx anesthesia problems: none Family hx anesthesia problems: none Results Review: All pre-operative results and documents have been reviewed as part of the pre-operative evaluation. [facility] Past Medical History Medical History Acute hyperglycemia Anemia Arrhythmia Chronic kidney disease, stage 3 Baseline creatinine ranges between 1.2 and 1.30. Chronic low back pain Elevated troponin Erectile dysfunction Hypertension Normal colonoscopy (~2009) Obesity (BMI 30-39.9) Paroxysmal atrial fibrillation Pulmonary embolus Renal failure Type 2 diabetes mellitus Hemoglobin A1c was 6.9% in May 2019. Surgical History Surgical History History of appendectomy History of hand surgery Close reduction with percutaneous pinning of left 5th finger fracture. History of repair of right rotator cuff Family History Family History Unknown Heart disease Sibling Congestive heart failure Diabetes mellitus Social History Social History Social History: Surrogate decision maker: Dakota Read, brother. Code status: Full code. Smoking packs per day: 0.2 Smoking cigarettes per day: 4.0 Years smoked: 1 Smoking pack-years: 0.20 Smoking status: Former smoker Tobacco type: cigarettes Second hand tobacco smoke exposure: No Smoking end date: 02/09/85 Additional smoking assessment comments: Patient smoked socially for 3 years remotely. Alcohol intake: current Substance use: never Substance use type: does not use Living arrangements: alone Additional living arrangements comments: Lives alone in [place]. He has grown children. Occupation/Education: occupation Additional occupation/education comments: He drives a school bus. Gender identity (if verbalized by the patient): Male Spiritual care concerns: No Anes - Eval Final PreProcedure Day of Procedure 12/02/23 11:40 Patient weight: obese Heart: regular rate and rhythm Lungs: clear to auscultation Airway: Mallampati scale Neurological: alert and oriented Last oral intake: >/= 8 hours ASA classification: III Emergent: no Anesthetic plan: proceed Anesthesia type and monitoring: general GIVS and standard monitoring Results Review: All pre-operative
--- NOTE | 2023-12-02 11:59 | WPDHPUPDATE1 ---
History and Physical Update Update Date/Time: 12/02/23 11:59 History and Physical has been reviewed, including an updated exam of the patient. There are NO changes in the patient's condition. Risks, benefits, and alternatives have been discussed and questions answered. Patient agrees to proceed with procedure.
[2023-12-02] MEDS: LACTATED RINGERS 1,000 ML 30 ML IV CONT (12:00)
[2023-12-02] MEDS: ceFAZolin 2 GM/D5W 50 ML 2 GM/50 ML BAG IVPB (12:26)
[2023-12-02] MEDS: BUPIVACAINE/EPINEPHRINE 0.5% 30 ML VIAL 20 ML INFILTRATE (12:41)
[2023-12-02 13:04] VITALS: BP 106/51; PULSE 80; RESP 16; O2SAT 100
[2023-12-02 13:10] LABS: Glucose Point of Care 125 mg/dl (65-105)
[2023-12-02 13:34] VITALS: BP 107/58; PULSE 85
[2023-12-02 14:04] VITALS: BP 104/56; PULSE 74
--- NOTE | 2023-12-02 14:23 | W.PM.PROC2 ---
Procedure Note - Detailed Date of Procedure 12/02/23 Pre-op Diagnosis right shoulder mass Post-op Diagnosis Other (Right shoulder synovial cyst) Procedure Performed excisional biopsy right shoulder synovial cyst measuring 4.1 x 2 x 5.2 Surgeon Caroline Lomeli MD Anesthesia MAC and Local Indications 73-year-old male presenting to the office with enlarging cystic mass in the right shoulder. Patient reports the mass has been enlarging and is now quite uncomfortable especially to palpation and pressure. Findings Right shoulder synovial cyst Description of Procedure The patient was taken to the operating room and placed in the supine position after adequate induction MAC anesthesia, the patient was prepped and draped in the normal sterile fashion a time-out was then done to the patient's identity, as well as the procedure being performed. I made an incision through the previous incision for his rotator cuff surgery. Taking the incision down into the dermis into the subcutaneous tissue, there was noted to be a synovial cyst in the intramuscular area. Muscle was split in the direction of its fibers and I was able to access the cyst. The cyst was quite large measuring 4.1 x 2 x 5.2 cm. I was able to carefully bluntly dissect around the cyst. In the posterior area, there was a noted opening between the right acromioclavicular joint and the cyst. I was able to amputate the cyst at this point. The area of connection to the joint was then closed with 2 0 silk suture. No other pathology was seen. I then closed the subcutaneous tissue with 3-0 Vicryl suture. The skin was closed with 4-0 Monocryl subcuticular suture. Dermabond was then placed on the wound. The patient tolerated the procedure well and was alert and awake postoperatively. He will be sent to the recovery room in stable condition. Estimated Blood Loss 5 Pathology Yes Complications No immediate complications Condition Stable Disposition PACU [facility] Billing Surgery - Charge Forward: Surgery Billing
== END 2023-12-02 14:29 | disposition home or self-care (01) ==
PROVIDERS: PCP Family Medicine; Visit Provider Surgery
PROC: (CPT 23073; principal; 2023-12-02 12:00)
DX: M71.311 Other bursal cyst, right shoulder (principal); D64.9 Anemia, unspecified; I12.9 Hypertensive chronic kidney disease with stage 1 through stage 4 chronic kidney disease, or unspecified chronic kidney disease; N18.30 Chronic kidney disease, stage 3 unspecified; E11.9 Type 2 diabetes mellitus without complications; N52.9 Male erectile dysfunction, unspecified; I48.0 Paroxysmal atrial fibrillation; G89.29 Other chronic pain; E66.9 Obesity, unspecified; Z68.32 Body mass index [BMI] 32.0-32.9, adult; M54.50 Low back pain, unspecified; Z79.82 Long term (current) use of aspirin; Z79.84 Long term (current) use of oral hypoglycemic drugs; Z98.890 Other specified postprocedural states; Z87.891 Personal history of nicotine dependence; Z86.711 Personal history of pulmonary embolism; Z82.49 Family history of ischemic heart disease and other diseases of the circulatory system
CPT/HCPCS: 23073; 82948; 88305; J0690; J2250; J2405; J2704; J3010; J7120